=== PATIENT | female | born 1930 | race Caucasian/White ===

== ENCOUNTER → 2016-09-13 | Outpatient (CLI) | payer MEDICARE, BC ==
[~2016-09-13] MED LIST: ALDACTONE25 MG PO; ANTIVERT25 MG PO; ASPIRIN325 MG PO; BENADRYL25 MG PO; COLACE100 MG PO; CYMBALTA30 MG PO; DILAUDID 2MG(HYD2 MG PO; FLOVENT 220 M220 MCG INH; LOTREL 5-10 MG1 EACH PO; MECLIZINE HCL25 MG PO; MIRALAX17 GM PO; MURO 128 5% OP3.5 GM OPHTH; NEXIUM40 MG PO; NORCO 5-325 TA1 EACH PO; TYLENOL EXTRA500 MG PO; VALIUM5 MG PO; VITAMIN B COMP1 EACH PO; VITAMIN C1000 MG PO; VITAMIN D1000 UNIT PO; VITAMIN E400 UNI1 PO; XARELTO10 MG PO; ZOCOR40 MG PO; [UNRECOGNIZED DRUG - OTHER] OPHTH
[2016-09-13 12:21] LABS: INR - (THERAPEUTIC) 1.1 (0.9-1.1); PROTIME 11.9 SECONDS (9.6-11.1)
== END | disposition disaster alternative care site (69) ==
LOC: LGSMG 12:05
PROVIDERS: Physician Assistant Medical
DX: Z01.812 Encounter for preprocedural laboratory examination (principal); N39.0 Urinary tract infection, site not specified

== ENCOUNTER 2016-09-19 11:00 | Inpatient (IN) | payer MEDICARE, BC ==
[~2016-09-19] VITALS: Ht 149.9 cm; Wt 57.4 kg
--- NOTE | ~2016-09-19 | OR ---
PATIENT'S NAME: [facility] AGE: 86 Y [address] ROOM: [place] [address] LOCATION: [facility] ADMIT DATE: 09/27/2016 OR/Procedure Report DISCHARGE DATE: FAMILY PHYSICIAN: Miguel Angel Norton MD ATTENDING PHYSICIAN: PHOENIX GARZA SURGEON: Phoenix Garza MD UI PROGRAMMER: Nii Flores CST/TEREZA and Phoenix Nye. DATE OF PROCEDURE: 09/27/2016 PREOPERATIVE DIAGNOSIS: Right shoulder degenerative joint disease. POSTOPERATIVE DIAGNOSES: 1. Right shoulder degenerative joint disease. 2. Proliferative synovitis. 3. Bicipital tenosynovitis. PROCEDURE PERFORMED: 1. Right total shoulder arthroplasty. 2. Right biceps tenodesis. ANESTHESIA: General endotracheal anesthesia plus subcutaneous and periarticular local anesthesia. DRAINS: None. ESTIMATED BLOOD LOSS: Approximately 100 mL. SPECIMEN: Synovial tissue for biopsy. Proliferative synovial mass at biceps tendon sheath for histology. IMPLANTS: Biomet JuggerKnot suture anchor x1. Biomet Hybrid polyethylene glenoid with porous titanium glenoid post. Biomet Comprehensive uncemented humeral stem (15 mm x 83 mm long). Standard humeral head adapter. A 42 x 18 mm humeral head with 46 mm radius of curvature. INDICATION FOR PROCEDURE: Ms. Tong is an 86-year-old female, who presents with severe right shoulder glenohumeral degenerative joint disease and associated severely compromised activities of daily living. She has decided to proceed with total shoulder arthroplasty after having been thoroughly counseled regarding risks, benefits, limitations, and alternatives. We have specifically reviewed risks and implications of infection, stiffness, neurovascular complications, instability, wear, loosening, and potential need for revision. Informed consent has been granted. PATIENT'S NAME: KWASI TONG [facility] AGE: 86 Y [address] ROOM: [address] [address] LOCATION: [facility] ADMIT DATE: 09/27/2016 OR/Procedure Report DISCHARGE DATE: FAMILY PHYSICIAN: Miguel Angel Norton MD ATTENDING PHYSICIAN: PHOENIX GARZA DESCRIPTION OF PROCEDURE: The patient was placed in a modified beach chair position after administration of general endotracheal anesthesia and prophylactic antibiotics. The right shoulder and right upper extremity were prepped and draped with vigilant sterile technique. Examination under anesthesia demonstrated no active skin lesions or masses. There was no instability. Passive forward elevation was limited to 90 degrees. Passive external rotation was limited to 20 degrees. The right shoulder was approached through a standard deltopectoral incision. The cephalic vein was identified and mobilized laterally with the deltoid. The exterior surface of the rotator cuff was pristine. There was an abundant amount of fluid within the biceps tendon sheath, and there was an associated 3 x 4 x 2 cm proliferative synovial mass. The biceps tendon sheath was entered and the tenosynovial mass was excised and sent to pathology. The biceps tendon was divided at the proximal aspect of the intertubercular groove and tagged for later tenodesis. It should be noted that the tenodesis was performed with a JuggerKnot suture anchor using all 4 limbs of suture, securing the biceps tendon to the proximal margin of the intertubercular groove immediately prior to insertion of the humeral stem. The axillary nerve was identified and was vigilantly protected throughout the entire case. The subscapularis tendon was divided vertically 1 cm medial to the lesser tuberosity and tagged with #1 Ethibond suture for later repair. There was an abundant amount of benign-appearing translucent synovial fluid. There was global full-thickness loss of articular cartilage throughout the humeral head and the glenoid. There was a moderate-sized osteophyte at the inferior humeral head. The humeral head resection was performed with an oscillating saw at 30 degrees of retroversion. The humeral canal was reamed by hand up to a size 15 with tapered conical reamers. The size 15 reamer engaged the endosteal cortex of the proximal humerus tightly. The humerus was broached up to a size 15. The size 15 broach obtained excellent axial and rotational stability. Circumferential glenoid exposure was obtained. Degenerative remnants of the glenoid labrum and biceps tendon were excised. There was an abundant amount of proliferative synovitis. An extensive synovectomy was performed. The glenoid was reamed and lug holes were drilled. The glenoid was secured with high-grade fixation (cementing the peripheral pegs and using a titanium press-fit stem centrally). The final humeral component was impacted after trial reductions demonstrated appropriate humeral height and stability. The entire incision and joint space PATIENT'S NAME: KWASI TONG [facility] AGE: 86 Y [address] ROOM: [id number] [place], [place] [address] LOCATION: [facility] ADMIT DATE: 09/27/2016 OR/Procedure Report DISCHARGE DATE: FAMILY PHYSICIAN: Miguel Angel Norton MD ATTENDING PHYSICIAN: PHOENIX GARZA were thoroughly irrigated with bacteriostatic pulsatile saline lavage multiple times throughout the case. The subscapularis tendon was repaired with multiple [id number] interrupted #2 Orthocord sutures. Periarticular soft tissues were infiltrated with local anesthetic. The incision was closed with simple deep interrupted 0 Vicryl followed by superficial buried interrupted 2-0 Vicryl, followed by a running subcuticular 3-0 Monocryl suture, followed by Dermabond, followed by Steri-Strips with benzoin. The dressing consisted of an occlusive Mepilex dressing. A shoulder immobilizer was placed, and the patient was extubated and transported to the Postanesthesia Care Unit in stable, comfortable condition. There were no complications. MD MARIANA HALL/modl /[id number] d: 09/28/16 0124 t: 10/04/16 0753, OPERATIVE SUMMARY
[~2016-09-19 11:00] MED LIST changes: -DILAUDID 2MG(HYD2 MG PO
[2016-09-28] MEDS ORDERED: COLACE100 MG PO (11:03)
[2016-09-28] MEDS ORDERED: DILAUDID 2MG(HYD2 MG PO (11:10)
== END 2016-09-28 14:50 | disposition home health service (06) | DRG 483 ==
LOC: G3N 09-27 06:51
PROVIDERS: ADMIT Orthopaedic Surgery
PROC: 0LS30ZZ Reposition Right Upper Arm Tendon, Open Approach (ICD-10-PCS; principal; 2016-09-27)
PROC: 0RRJ0JZ Replacement of Right Shoulder Joint with Synthetic Substitute, Open Approach (ICD-10-PCS; principal; 2016-09-27)
DX: M19.011 Primary osteoarthritis, right shoulder (principal); C90.00 Multiple myeloma not having achieved remission; G62.9 Polyneuropathy, unspecified; I10 Essential (primary) hypertension; M75.21 Bicipital tendinitis, right shoulder; E78.5 Hyperlipidemia, unspecified; J30.9 Allergic rhinitis, unspecified; D33.3 Benign neoplasm of cranial nerves; J45.991 Cough variant asthma; M25.569 Pain in unspecified knee; G89.29 Other chronic pain; K21.9 Gastro-esophageal reflux disease without esophagitis; E34.9 Endocrine disorder, unspecified; D47.2 Monoclonal gammopathy; K44.9 Diaphragmatic hernia without obstruction or gangrene; E83.52 Hypercalcemia; D50.9 Iron deficiency anemia, unspecified; M54.81 Occipital neuralgia; M81.0 Age-related osteoporosis without current pathological fracture; M70.60 Trochanteric bursitis, unspecified hip; Z79.899 Other long term (current) drug therapy; Z96.643 Presence of artificial hip joint, bilateral; Z96.651 Presence of right artificial knee joint
CPT/HCPCS: C1713; C1776; C9290; J0171; J0690; J1885; J2001; J3010; J7120

== ENCOUNTER → 2017-01-04 | Outpatient (CLI) | payer MEDICARE, BC ==
[~2017-01-04] MED LIST changes: +DILAUDID 2MG(HYD2 MG PO
== END ==
LOC: LGSMG 16:32
DX: R63.4 Abnormal weight loss (principal); E83.52 Hypercalcemia